=== PATIENT | male | born 1980 | race Caucasian/White ===

== ENCOUNTER 2024-02-06 07:07 | Outpatient (REF) | payer OTHER, SELFPAY ==
--- NOTE | ~2024-02-06 | MR_ITS ---
EXAMINATION: MR BRAIN WITHOUT CONTRAST CLINICAL INFORMATION: New onset of migraines. Hand tremors. COMPARISON: None available. TECHNIQUE: MRI of the brain was obtained using routine sequences without contrast. FINDINGS: No restricted diffusion. No acute intracranial hemorrhage, mass effect, midline shift, hydrocephalus or herniation. Toro-white matter differentiation is normal. There is a focal, linear/perpendicular oriented towards the corpus callosum hyperintense T2 FLAIR signal abnormality within the deep white matter right frontal ovalles radiata with a few associated focal patchy hyperintense T2 FLAIR signal. Posterior cranial fossa contents demonstrated no acute intracranial hemorrhage or mass effect. Flow void signal within the main cerebral vessels is normal. Sellar/supersellar region is normal. Craniocervical junction is intact. MR/MR head/brain wo con IMPRESSION: No acute stroke/ischemia. No acute intracranial hemorrhage. Probable old lacunar infarcts, right frontal ovalles radiata white matter. Consider IV contrast enhanced MRI brain for further imaging evaluation. Electronically signed by: Taran Aly MD 02/06/2024 08:48 AM EDT
== END 2024-02-06 07:08 | disposition home or self-care (01) ==
LOC: HO.MRI 07:07
PROVIDERS: PCP Internal Medicine; Visit Provider Psychiatry & Neurology Neurology
DX: R51.9 Headache, unspecified (principal)
CPT/HCPCS: 70551

== ENCOUNTER → 2024-02-06 07:10 | Outpatient (BNV) | payer OTHER, SELFPAY | PROVIDERS: PCP Internal Medicine; Visit Provider Radiology Diagnostic Radiology | DX: G43.909 Migraine, unspecified, not intractable, without status migrainosus (principal) | CPT/HCPCS: 70551 ==

== ENCOUNTER 2024-02-26 07:46 | Outpatient (REF) | payer OTHER, SELFPAY ==
--- NOTE | ~2024-02-26 | MR_ITS ---
EXAMINATION: MR BRAIN WITH CONTRAST CLINICAL INFORMATION: Headache. Tremors in the hand. COMPARISON: Correlated to MRI without contrast dated January 2024. TECHNIQUE: MRI of the brain was obtained using routine sequences with contrast. Intravenous contrast: Gadavist 10.0 mL without reported immediate complications. FINDINGS: No intra-axial or extra-axial enhancing lesion or abnormal enhancement. The main cerebral venous sinuses are patent without intraluminal filling defects. Perpendicular oriented nonenhancing FLAIR signal abnormality in the right frontal lobe likely related to prior vascular insult. Sellar/suprasellar region demonstrated no enhancing lesion. Midline structures are normal. MR/MR head/brain w con IMPRESSION: No abnormal enhancement. Probable old lacunar infarct/prior vascular insult right frontal white matter. Electronically signed by: Taran Aly MD 03/05/2024 09:03 AM [facility]
[2024-02-26] MEDS: gadobutroL 10 ML VIAL IVPUSH (08:55)
== END 2024-02-26 07:47 | disposition home or self-care (01) ==
LOC: HO.MRI 07:46
PROVIDERS: PCP Internal Medicine; Visit Provider Psychiatry & Neurology Neurology
DX: R90.89 Other abnormal findings on diagnostic imaging of central nervous system (principal)
CPT/HCPCS: 70552; A9585

== ENCOUNTER → 2024-02-26 07:58 | Outpatient (BNV) | payer OTHER, SELFPAY | PROVIDERS: PCP Internal Medicine; Visit Provider Radiology Diagnostic Radiology | DX: R51.9 Headache, unspecified (principal); R25.1 Tremor, unspecified | CPT/HCPCS: 70552 ==